=== PATIENT | male | born 1990 | race Caucasian/White ===

== ENCOUNTER 2021-12-05 04:41 | Inpatient (IN) | payer MEDICAID ==
[2021-12-05] MEDS ORDERED: cefOXitin 2 GM Vial ONE (06:34)
[2021-12-05] MEDS ORDERED: Ondansetron 4 MG/2 ML SDV ONE (07:46)
[2021-12-05] MEDS ORDERED: Succinylcholine 200 MG/10 ML MDV ONE (07:46)
[2021-12-05] MEDS ORDERED: Neostigmine Methylsulfate 1 MG/ML 5 ML Syringe ONE (07:46)
[2021-12-05] MEDS ORDERED: Glycopyrrolate 0.2 MG/ML 5 ML MDV ONE (07:46)
[2021-12-05] MEDS ORDERED: fentaNYL 250 MCG/5 ML SDV ONE ×3 (07:46→12:38)
[2021-12-05] MEDS ORDERED: Rocuronium 50 MG/5 ML Vial ONE ×2 (07:46→11:19)
[2021-12-05] MEDS ORDERED: Propofol 200 MG/20 ML SDV ONE (07:46)
[2021-12-05] MEDS ORDERED: Dexamethasone 4 MG/ML SDV ONE (07:46)
[2021-12-05] MEDS ORDERED: Lactated Ringers 1,000 ML ONE (07:49)
[2021-12-05] MEDS ORDERED: Scopolamine 1.5 MG Transdermal Patch TOP SCH (09:15)
[2021-12-05] MEDS ORDERED: Celecoxib 200 MG Cap PO ONE (09:15)
[2021-12-05] MEDS ORDERED: Acetaminophen 500 MG Tab PO ONE (09:15)
[2021-12-05] MEDS ORDERED: Dextrose 5%-Lactated Ringers 1,000 ML IV SCH (09:15)
[2021-12-05] MEDS ORDERED: cefOXitin 2 GM in Sodium Chloride 0.9% 50 ML IV ONE (10:15)
[2021-12-05] MEDS ORDERED: Ketamine 22 MG in Sodium Chloride 0.9% 19.78 ML IV SCH (10:30)
[2021-12-05] MEDS ORDERED: Ketamine 500 MG/5 ML MDV IV SCH (10:30)
[2021-12-05] MEDS ORDERED: Cyclobenzaprine 10 MG Tab PO PRN (14:42)
[2021-12-05] MEDS ORDERED: HYDROmorphone 1 MG/ML Syringe IV PRN (15:00)
[2021-12-05] MEDS ORDERED: Metoclopramide 10 MG/2 ML SDV IVPUSH PRN (15:00)
[2021-12-05] MEDS ORDERED: traMADol 50 MG Tab PO PRN (15:00)
[2021-12-05] MEDS ORDERED: Ondansetron 4 MG/2 ML SDV IVPUSH PRN (15:00)
[2021-12-05] MEDS ORDERED: Labetalol 20 MG/4 ML Syringe IVPUSH PRN (15:00)
[2021-12-05] MEDS ORDERED: Acetaminophen 500 MG Tab PO PRN (15:00)
[2021-12-05] MEDS ORDERED: diphenhydrAMINE 50 MG/ML SDV IVPUSH PRN (15:00)
[2021-12-05] MEDS ORDERED: Pantoprazole 40 MG Vial IVPUSH SCH (15:00)
[2021-12-05] MEDS ORDERED: HYDROmorphone 0.5 MG/0.5 ML Syringe IVPUSH PRN (15:00)
[2021-12-05] MEDS ORDERED: hydrOXYzine HCL 100 MG/2 ML SDV IM PRN (15:00)
[2021-12-05] MEDS ORDERED: MVI, Adult with Vitamin K 10 ML, Thiamine 200 MG, Zinc/Copper/Manganese/Selenium 1 ML i... IV SCH ×4 (16:00)
[2021-12-05] MEDS: Acetaminophen 500 MG Tab PO SCH (17:04)
[2021-12-05] MEDS: cefOXitin 2 GM in Sodium Chloride 0.9% 50 ML IV SCH ×2 (17:04→21:05)
[2021-12-05] MEDS: Heparin Sodium 5,000 Units/ML Vial SUBCUT SCH (17:05)
[2021-12-05] MEDS: oxyCODONE 5 MG Tab PO PRN (18:32)
[2021-12-06] MEDS: Dextrose 5%-Lactated Ringers 1,000 ML IV SCH ×2 (01:07→06:35)
[2021-12-06] MEDS: Acetaminophen 500 MG Tab PO SCH ×3 (01:08→17:33)
[2021-12-06] MEDS: Heparin Sodium 5,000 Units/ML Vial SUBCUT SCH ×3 (01:08→17:33)
[2021-12-06] MEDS: oxyCODONE 5 MG Tab PO PRN ×3 (01:08→16:09)
[2021-12-06] MEDS ORDERED: Iopamidol 612 MG/ML 50 ML SDV PO ONE (02:17)
[2021-12-06] MEDS: cefOXitin 2 GM in Sodium Chloride 0.9% 50 ML IV SCH ×3 (03:15→16:11)
[2021-12-06] MEDS ORDERED: Ondansetron 4 MG Tab.DIS PO PRN (08:01)
[2021-12-06] MEDS ORDERED: hydrOXYzine HCl 25 MG Tab PO PRN (08:02)
[2021-12-06] MEDS ORDERED: Dextrose 5%-Lactated Ringers 1,000 ML IV SCH (08:15)
[2021-12-06] MEDS: Hydrochlorothiazide 25 MG Tab PO SCH (08:24)
[2021-12-06] MEDS: Celecoxib 200 MG Cap PO SCH ×2 (08:25→20:36)
[2021-12-06] MEDS: Losartan 50 MG Tab PO SCH (08:25)
[2021-12-06] MEDS: SCOPOLAMINE PATCH CHECK TOP SCH (08:25)
[2021-12-06] MEDS: atorvaSTATin 20 MG Tab PO SCH (08:25)
[2021-12-06] MEDS ORDERED: MVI, Adult with Vitamin K 10 ML, Thiamine 200 MG, Zinc/Copper/Manganese/Selenium 1 ML i... IV SCH ×4 (16:00)
[2021-12-06] MEDS ORDERED: Pantoprazole 40 MG Delayed-Release Granules 1 Packet PO SCH (16:30)
[2021-12-07] MEDS: oxyCODONE 5 MG Tab PO PRN (02:48)
[2021-12-07] MEDS: Acetaminophen 500 MG Tab PO SCH ×2 (02:50→09:17)
[2021-12-07] MEDS: Heparin Sodium 5,000 Units/ML Vial SUBCUT SCH ×2 (02:51→09:17)
[2021-12-07] MEDS ORDERED: Cyanocobalamin (Vitamin B12) 1,000 MCG/ML SDV IM ONE (09:00)
[2021-12-07] MEDS: Hydrochlorothiazide 25 MG Tab PO SCH (09:13)
[2021-12-07] MEDS: Losartan 50 MG Tab PO SCH (09:13)
[2021-12-07] MEDS: Celecoxib 200 MG Cap PO SCH (09:14)
[2021-12-07] MEDS: atorvaSTATin 20 MG Tab PO SCH (09:14)
[2021-12-07] MEDS: SCOPOLAMINE PATCH CHECK TOP SCH (09:16)
== END 2021-12-07 12:10 | disposition home or self-care (01) | DRG 621 ==
LOC: JP.SDSSCHI 08:52 → JP.SDS 08:52 → EDSTATUS 13:00 → JP.MS 13:20
PROVIDERS: ADMIT Surgery; ATTEND Surgery
PROC: 0DB64Z3 Excision of Stomach, Percutaneous Endoscopic Approach, Vertical (ICD-10-PCS; principal; 2021-12-05)
PROC: 0FB24ZX Excision of Left Lobe Liver, Percutaneous Endoscopic Approach, Diagnostic (ICD-10-PCS; 2021-12-05)
PROC: 0BQT4ZZ Repair Diaphragm, Percutaneous Endoscopic Approach (ICD-10-PCS; 2021-12-05)
PROC: 0JB63ZZ Excision of Chest Subcutaneous Tissue and Fascia, Percutaneous Approach (ICD-10-PCS; 2021-12-05)
DX: E66.01 Morbid (severe) obesity due to excess calories (principal); R16.0 Hepatomegaly, not elsewhere classified; D17.4 Benign lipomatous neoplasm of intrathoracic organs; I10 Essential (primary) hypertension; E78.5 Hyperlipidemia, unspecified; G47.33 Obstructive sleep apnea (adult) (pediatric); Z68.43 Body mass index [BMI] 50.0-59.9, adult; Z98.890 Other specified postprocedural states
CPT/HCPCS: 36415; 74240; 74240-26; 82947; 86850; 86900; 86901; 88304; 88307; 88313; A9270-GY; C9113; J0171; J0330; J0694; J1100; J1644; J2405; J2704; J2710; J2795; J3010; J3410; J3411; J3420; J3490; J7030; J7120; J7121; Q9967